=== PATIENT | female | born 1955 | race Caucasian/White ===

== ENCOUNTER 2016-07-06 11:24 | Emergency (ER) | payer MEDICAID ==
[~2016-07-06] VITALS: Ht 160 cm; Wt 68.0 kg
[2016-07-06 12:43] LABS: BLOOD UREA NITROGEN 17 mg/dL (7-18)
[2016-07-06 12:45] LABS: ASPARTATE AMINO TRANSFERASE 13 U/L (15-37)
[2016-07-06] MEDS ORDERED: LOSA25TA5 PO (12:52)
[2016-07-06] MEDS ORDERED: ATOR80TA75 PO (12:52)
[2016-07-06 14:01] VITALS: BP 114/74
== END 2016-07-06 14:02 | disposition home or self-care (01) ==
LOC: ED 12:07
DX: M79.651 Pain in right thigh (principal); M25.561 Pain in right knee; R60.0 Localized edema; M71.21 Synovial cyst of popliteal space [Baker], right knee; I10 Essential (primary) hypertension; Z90.89 Acquired absence of other organs
CPT/HCPCS: 36415; 76830; 80053; 85025